=== PATIENT | female | born 1940 | race Caucasian/White ===

== ENCOUNTER 2016-08-01 10:40 | Emergency (ER) | payer MEDICARE, BC ==
[2016-08-01 11:11] LABS: Hematocrit 37.5 % (37.0-47.0); Hemoglobin 12.6 gm/dL (12.5-16.0); Mean Cell Volume 90.1 fl (78-100); Mean Corpuscular Hemoglobin 30.3 pg (27-31); Mean Corpuscular Hgb Conc 33.6 g/dl (32-36); Mean Platelet Volume 9.2 fl (6.0-9.5); Neutrophil # 5.2 K/mm3 (1.3-6.0); Neutrophil % 71.9 % (42-75.0); Platelet Count 253 K/mm3 (150-450); Red Blood Count 4.16 M/mm3 (4.2-5.4); Red Cell Distribution Width 13.2 % (11.5-14.0); White Blood Count 7.3 K/mm3 (4.0-10.5)
[2016-08-01 11:19] LABS: Prothrombin Time (Patient) 11.6 Seconds (9.4-11.4)
--- NOTE | 2016-08-01 11:19 | ERNOTE ---
Chest Pain/Cardiac HPI Chief Complaint: Chest Pain Time Seen by Provider: 08/01/16 11:06 Source: patient Exam Limitations: no limitations Immunizations: IMMUNIZATION HX Immunizations Up to Date Yes History of Influenza Vaccine No Hx Pneumococcal Vaccination No Allergies/Adverse Reactions: Allergies No Known Allergies Allergy (Unverified 08/01/16 10:55) Home Medications: HOME MEDICATIONS Ibuprofen [Motrin] 200 mg PO PRN PRN 08/01/16 [Last Taken Unknown] Narrative: Patient has had pain in her right posterior chest for four days, the pain is constant and worse with breathing. She took aleve at home and currently has no significant pain, denies any other symptoms, states that it feels like ' inflammation' Date (Duration): 07/28/16 Timing: constant Severity/Quality: aching Location: back Chest Pain Radiation: no radiation Activities at Onset: none Modifying Factors - Improves: Present: other - ibuprofen Modifying Factors - Worsens: Present: breathing, movement Review of Systems - Review of Systems Constitutional: Absent: recent illness, fever ENT: Present: nasal drainage. Absent: ear pain, nose congestion, sore throat Respiratory: Present: cough - slight, dry Cardiology: Present: See HPI Gastrointestinal/Abdominal: Absent: nausea, vomiting, abdominal pain Genitourinary: Present: no symptoms reported Musculoskeletal: Absent: back pain, neck pain Skin: Absent: rash Neurological: Absent: headache, weakness, numbness - Patient's Past Medical History Patient History - Medical: Arthritis Patient History - Cardiac/Respiratory: No pertinent hx Patient History - Cancer: No Hx of Cancer Patient History - Surgical Procedures: Patient History - Other: None LMP (females 10-50): Menopausal - Social History Living Situations: home Abuse History: No History of abuse Psych History: No pertinent hx Smoking Status: Never smoker Alcohol Use: none Drug Use: none - Immunizations Immunizations Up to Date: Yes Hx Pneumococcal Vaccination: No History of Influenza Vaccine: No Physical Exam - Physical Exam General Appearance: Present: wd/wn, alert, no apparent distress Ears, Nose, Throat: Present: normal pharynx Neck: Present: normal inspection, nontender Respiratory: Present: no respiratory distress, normal breath sounds, chest nontender, lungs clear Cardiovascular/Chest: Present: regular rate, rhythm, no murmur Gastrointestinal/Abdominal: Present: nontender, nondistended, soft Back Exam: Present: normal inspection, no vertebral tenderness Extremity Exam: Present: no edema Neurological Exam: Present: alert, oriented, normal mood/affect Skin Exam: Present: normal color, warm/dry ED Progress - Results and Orders Patient's Lab Results:: I have reviewed the patient's lab results. - Vital Signs Patient's Vital Signs:: I have reviewed the patient's vital signs. Vital Signs: Vital Signs 08/01/16 10:46 Temperature 37.5 C Pulse Rate 75 Respiratory 14 Rate Blood Pressure 140/69 O2 Sat by Pulse 96 Oximetry - EKG EKG: NSR, nonspecific ST T wave changes EKG read: Interp. by me - X-Ray X-Ray #1 X-Ray: chest - no acute findings Interpretation: Reviewed by me - Progress/Reassessment Chief Complaint: Chest Pain Progress Note-Subjective: 08/01/16 12:05 discussed results with patient and limitations of test to rule our CAD, Symptoms more consistent with pleuritic pain Departure - Departure Clinical Impression: Pleurisy Disposition: Home self-care Condition: Good Instructions: Pleurisy, [id number] Additional Instructions: continue to take aleve as needed for pain Referrals: Betty Jo MD [Primary Care Provider] -
--- OUTSIDE RECORDS SUMMARY | 2016-08-01 11:22 | XMS REPORT | Continuity of Care Document ---
:1940 Author Organization [facility] ([facility]) Address [address] [place] [address] Phone [phone] Care Team Providers Name Role Phone Betty Jo Primary Care Provider [phone] Source Comments This disclosure is being made pursuant to the Care Everywhere program, applicable federal and state laws, and may not contain all informaitonavailable regarding this patient.[facility] ([facility]) Active Allergies and Adverse Reactions Allergen Noted Date Severity Reactions Comments Other Agent 09/05/2009 Rhinorrhea seasonal Current Medications Prescription Sig. Disp. Refills Start Date End Date Status Diphenhydramine-Acetaminop Take 2 Caps by 09/05/2009 Active hen (TYLENOL SEVERE mouth every 6 ALLERGY) 12.5-500 mg Tab hours. Naproxen Sodium 220 mg Tab Take 1 Tab by 09/05/2009 Active mouth daily. Chromium Picolinate 200 Take 1 Cap by 09/05/2009 Active mcg Cap mouth daily. VITAMIN E-400 PO Take 2 Tabs by 09/05/2009 Active mouth 2 times daily with meals. Garlic (GARLIC OIL) 1,500 Take 1 Cap by 09/05/2009 Active mg Cap mouth daily. FOLIC ACID/MULTIVITS-MIN Take 1 Tab by 09/05/2009 Active (MULTIVITAMIN FOR mouth daily. CHOLESTEROL PO) Flaxseed Oil 1,000 mg Cap Take 1 Cap by 09/05/2009 Active mouth 2 times daily. Calcium Carbonate-Vit Take 1 Cap by 09/05/2009 Active D3-Min (CALTRATE 600+D mouth 2 times PLUS MINERALS) 600 mg daily with meals. (1,500 mg)-400 unit Chew OMEGA-3 FATTY ACIDS (FISH Take 1 Tab by Active OIL CONCENTRATE PO) mouth daily. Cholecalciferol, Vitamin Take 1 Tab by Active D3, (VITAMIN D-3) 1,000 mouth daily. unit Chew Active Problems Problem Noted Date GERD (gastroesophageal reflux disease) 09/05/2009 Overview: EGD 1996 showed large sliding hernia. H Pillory negative Diverticulosis of sigmoid 09/05/2009 Overview: Colonoscopy 2006 Social History Tobacco Use Types Packs/Day Years Used Date Never Smoker Alcohol Use Drinks/Week oz/Week Comments No Last Filed Vital Signs Vital Sign Reading Time Taken Blood Pressure 125/70 12/26/2009 2:04 PM CDT Pulse 67 12/26/2009 2:04 PM CDT Temperature 36.2 C (97.2 F) 12/26/2009 2:04 PM CDT Respiratory Rate - - Height 1.62 m (5' 3.78") 09/05/2009 12:56 PM CDT Weight 77.2 kg (170 lb 3.1 oz) 12/26/2009 2:04 PM CDT Body Mass Index 29.42 12/26/2009 2:04 PM CDT Oxygen Saturation - - Plan of Care Health Maintenance Due Date Last Done Comments Hepatitis B Vaccine (1 of 3 - Primary Series) 1940 Tdap Vaccine 11/25/1950 Lipid Disorder Screening 11/25/1957 Td Vaccine 11/25/1957 Mammogram 1979 Colonoscopy 11/25/1989 Zoster Vaccine 1999 Osteoporosis Screening (DXA Bone Density) 11/25/2004 Pneumococcal Vaccine (1 of 2 - PCV13) 11/25/2004 Influenza Vaccine: Seasonal (#1) 11/28/2015 Results from Last 3 Months Not on file
[2016-08-01 11:28] LABS: ALT 23 U/L (19-67); AST 19 U/L (0-48); Albumin * 3.2 gm/dl (3.4-5.0); Alkaline Phosphatase * 79 U/L (50-170); Anion Gap 12.2 mmol/L (6.8-13.8); BUN/Creatinine Ratio 22.2 (9.0-21.6); Bilirubin, Total 0.3 mg/dL (0.0-1.1); Blood Urea Nitrogen 14 mg/dL (3-23); Ca. Corrected For Albumin 9.5 mg/dL (8.4-10.2); Calcium * 9.2 mg/dL (7.9-10.9); Carbon Dioxide 29.1 mmol/L (24-32.6); Chloride 101 mmol/L (97-106); Glucose * 123 mg/dL (70-110); Potassium 4.3 mmol/L (3.4-4.6); Sodium 138 mmol/L (132-142); Total Protein 7.7 gm/dL (6.2-8.2); Troponin I Less than 0.017 ng/ml (0.00-0.10)
[2016-08-01 11:31] LABS: INR 1.12 INR (0.90-1.10); Partial Thrombolplastin Time 30.1 Seconds (24-32)
[2016-08-01 17:32] VITALS: BP 184/89
== END 2016-08-01 12:10 | disposition home or self-care (01) ==
LOC: ER 10:40
DX: R09.1 Pleurisy (principal)